=== PATIENT | female | born 1960 | race American Indian/Alaskan Native ===

== ENCOUNTER 2021-11-28 23:25 | Emergency (ER) | payer SELFPAY ==
[~2021-11-28 23:25] MED LIST: EPINEPHrine 1 MG/10 ML SYRINGE ONE; LIDOCAINE PF 100 MG/5 ML (CARDIAC SYRINGE) IV ONE
--- NOTE | 2021-11-28 23:45 | Emergency Department Report ---
HPI - General Time Seen by Provider: 11/28/21 23:40 - HPI HPI: Room 18 The patient is a 60-year-old female present with a chief complaint of cardiac arrest. Per EMS they originally received a call for violent nausea and vomiting. Just prior to EMS arrival family reported the patient "went out." Upon EMS arrival at 22:39 the patient was found to be unresponsive and asystolic. ACLS protocols were initiated. Patient was intubated using a Combitube. EMS states the patient entered V. fib and was defibrillated x2. EMS administered 3 rounds of epi and 1 sodium bicarb prior to arrival. Upon arrival to the ED the Combitube was removed and the patient was intubated by myself using a 7.0 ET tube and the glidescope. ACLS protocols were continued but there was no return of spontaneous circulation ED Past Medical Hx - Past Medical History Hx Hypertension: Yes Hx Diabetes: Yes - Surgical History Additional Surgical History: Gastric bypass - Family History Family history: no significant - Social History Smoking Status: Unknown if ever smoked Substance Use Type: None ED Review of Systems ROS: Stated complaint: CARDIAC ARREST Other details as noted in HPI Comment: Unobtainable due to pts medical conditions Physical Exam - Physical Exam Physical Exam: GENERAL: The patient is well-developed well-nourished female lying on stretcher receiving chest compressions from EMS and being bagged via Combitube. [] HEENT: Normocephalic. Atraumatic. Copious brown liquid in the oropharynx NECK: Trachea midline CHEST/LUNGS: No spontaneous respirations. Breath sounds equal bilaterally after intubation by myself HEART/CARDIOVASCULAR: No heart sounds. Asystole on the monitor ABDOMEN: Abdomen is distended SKIN: There is no rash. There is no edema. There is no diaphoresis. NEURO: GCS 3 T MUSCULOSKELETAL: There is no evidence of acute injury. - Intubation Time Out Performed: No Sedative: none Laryngoscope: fiberoptic video scope Size: 3 Assist Device Used: fiberoptic device ET Tube Size: 7 Tube Secured Depth (cm): 21 Tube Secured Location: lips Tube Placement Confirmation: visualized tube passing t, equal breath sounds bilat, no breath sounds over epi, confirmation by capnometr Patient Tolerated Procedure: well Intubation Complications: none ED Medical Decision Making - Differential Diagnosis Cardiac arrest Critical care attestation.: If time is entered above; I have spent that time in minutes in the direct care of this critically ill patient, excluding procedure time. ED Disposition Clinical Impression: Cardiac arrest Disposition: 20 Is pt being admited?: No Does the pt Need Aspirin: No Condition: Poor Time of Disposition: 23:41 (Patient )
== END 2021-11-29 01:00 ==
LOC: ED 23:25
DX: I46.9 Cardiac arrest, cause unspecified (principal); I10 Essential (primary) hypertension; E11.8 Type 2 diabetes mellitus with unspecified complications
CPT/HCPCS: 31500; 92950; 99285; J0171; J2001